=== PATIENT | female | born 1950 | race Caucasian/White ===

== ENCOUNTER 2018-02-27 09:39 | Day surgery (SDC) | payer MEDICARE, MEDICAID ==
[~2018-02-27] VITALS: Ht 165.1 cm; Wt 100.0 kg
[~2018-02-27 09:39] MED LIST: ALBU18HF2 INH; ASPI-611 PO; ATOR20TA PO; CHOL100046 PO; DULO60CA64 PO; FURO-150 PO; GABA-530 PO; IBUP-1984 PO; MORP60CP14 PO; POTA20TA19 PO; TRAZ-146 PO
[2018-02-27] MEDS ORDERED: MIDAZolam 5mg/5ml vial ONE ×2 (09:45→12:57)
[2018-02-27] MEDS ORDERED: LIDOcaine Viscous 15ml cup ONE (09:45)
[2018-02-27] MEDS ORDERED: fentaNYL/PF 50MCG/1 ML 2ML syringe ONE (09:45)
[2018-02-27 09:50] VITALS: BP 196/77
[2018-02-27] MEDS ORDERED: TIOT18CA3 IH (10:04)
[2018-02-27] MEDS ORDERED: HYDR25TA4 PO (10:04)
[2018-02-27] MEDS ORDERED: LORA1TAB PO (10:05)
[2018-02-27] MEDS ORDERED: blood pressure med PO (10:06)
[2018-02-27] MEDS ORDERED: LOSA100T28 PO (10:21)
[2018-02-27] MEDS ORDERED: PROP20TA6 PO (10:24)
[2018-02-27] MEDS ORDERED: CITA20TA11 PO (10:25)
[2018-02-27] MEDS ORDERED: FURO-150 PO (10:25)
[2018-02-27] MEDS ORDERED: SENN-161 PO (10:26)
[2018-02-27] MEDS ORDERED: DOCU100C41 PO (10:26)
[2018-02-27] MEDS ORDERED: METF10002 PO (10:27)
[2018-02-27] MEDS ORDERED: FERR324T PO (10:28)
[2018-02-27] MEDS ORDERED: MORP30CA16 PO (10:28)
[2018-02-27] MEDS ORDERED: HYDR-565 PO (10:29)
[2018-02-27] MEDS ORDERED: ASCO500C15 PO (10:34)
[2018-02-27] MEDS ORDERED: CHOL2000 PO (10:36)
[2018-02-27] MEDS ORDERED: LIDOCAINE PATCH TD (10:38)
[2018-02-27 11:16] VITALS: BP 170/84
[2018-02-27 11:26] VITALS: BP 175/76
[2018-02-27 11:36] VITALS: BP 150/76
[2018-02-27 11:46] VITALS: BP 161/73
== END 2018-02-27 12:10 | disposition home or self-care (01) ==
LOC: GI LAB 09:39
PROVIDERS: ATTEND Internal Medicine Gastroenterology
DX: C20 Malignant neoplasm of rectum (principal); K29.50 Unspecified chronic gastritis without bleeding; K44.9 Diaphragmatic hernia without obstruction or gangrene; I10 Essential (primary) hypertension; J44.9 Chronic obstructive pulmonary disease, unspecified; M17.0 Bilateral primary osteoarthritis of knee; M47.819 Spondylosis without myelopathy or radiculopathy, site unspecified; E11.9 Type 2 diabetes mellitus without complications; F32.9 Major depressive disorder, single episode, unspecified; F41.9 Anxiety disorder, unspecified; Z87.891 Personal history of nicotine dependence; Z85.048 Personal history of other malignant neoplasm of rectum, rectosigmoid junction, and anus; Z79.84 Long term (current) use of oral hypoglycemic drugs; Z79.891 Long term (current) use of opiate analgesic; Z88.6 Allergy status to analgesic agent; Z79.899 Other long term (current) drug therapy; Z98.890 Other specified postprocedural states; Z79.82 Long term (current) use of aspirin
CPT/HCPCS: 43239; 45380; 99153; G0500; J2250; J3010; J7030; A4620

== ENCOUNTER 2018-12-15 10:48 | Emergency (ER) | payer MEDICARE, MEDICAID ==
[~2018-12-15] VITALS: Ht 167.6 cm; Wt 99.1 kg
[~2018-12-15 10:48] MED LIST changes: +ASCO500C15 PO; -ASPI-611 PO; -ATOR20TA PO; +CHOL2000 PO; +CITA-279 PO; +DOCU100C41 PO; +FERR324T PO; -GABA-530 PO; +HYDR-4353 PO; -IBUP-1984 PO; +LIDOCAINE PATCH TD; +LORA1TAB PO; +LOSA100T57 PO; +METF-438 PO; +MORP30CA16 PO; -POTA20TA19 PO; +PROP20TA6 PO; +SENN-162 PO; +TIOT18CA3 IH; -TRAZ-146 PO; +TRAZ-219 PO
[2018-12-15 12:20] LABS: BASOPHILS % (AUTO) 0.4 % (0-1); EOSINOPHILS # (AUTO) 0.1 X10'3 (0-0.9); EOSINOPHILS % (AUTO) 1.2 % (0-6); HEMATOCRIT 40.7 % (35.0-45.0); HEMOGLOBIN 13.8 g/dl (12.0-16.0); LYMPHOCYTES % (AUTO) 18.5 % (21-51); MEAN CORPUSCULAR HEMOGLOBIN 29.7 PG (27.0-31.0); MEAN CORPUSCULAR HGB CONC 33.8 % (33.0-36.5); MEAN PLATELET VOLUME 7.7 FL (7.4-10.4); MONOCYTES # (AUTO) 0.3 X10'3 (0-0.9); MONOCYTES % (AUTO) 5.1 % (2-12); NEUTROPHILS # (AUTO) 4.1 X10'3 (1.8-7.7); NEUTROPHILS % (AUTO) 74.8 % (42-75); PLATELET COUNT 220 X10'3 (140-440); RED BLOOD COUNT 4.63 X10'6 (4.20-5.60); RED CELL DISTRIBUTION WIDTH 13.1 % (11.5-14.5); WHITE BLOOD COUNT 5.4 X10'3 (4.5-11.0)
[2018-12-15 12:34] LABS: ALANINE AMINOTRANSFERASE 31 U/L (12-78); ALBUMIN 3.5 G/DL (3.4-5.0); ALBUMIN/GLOBULIN RATIO 0.9 (1.1-1.5); ALKALINE PHOSPHATASE 91 IU/L (46-116); ANION GAP 11 (8-16); ASPARTATE AMINO TRANSFERASE 20 U/L (10-37); BILIRUBIN,TOTAL 0.4 MG/DL (0.1-1.0); BLOOD UREA NITROGEN 8 MG/DL (7-18); BUN/CREATININE RATIO 11.3 (6.6-38.0); CALCIUM 9.1 MG/DL (8.5-10.1); CHLORIDE 102 MMOL/L (99-107); CREATININE 0.71 MG/DL (0.40-0.90); GLUCOSE 128 MG/DL (70-104); POTASSIUM 3.1 MMOL/L (3.5-5.1); SODIUM 139 MMOL/L (135-145); TOTAL CARBON DIOXIDE 25.6 MMOL/L (24-32); TOTAL PROTEIN 7.3 G/DL (6.4-8.2); eGFR 82 ML/MIN
[2018-12-15] MEDS ORDERED: LORazepam 1 MG tablet PO ONE (12:40)
[2018-12-15] MEDS ORDERED: LORazepam 0.5 MG tablet PO ONE (12:45)
[2018-12-15] MEDS ORDERED: potassium 10mEq/100ml NS w/LIDOcaine (10mg/bag) IV SCH (12:50)
[2018-12-15] MEDS ORDERED: potassium Cl 20 mEq SR tablet PO ONE (12:50)
[2018-12-15] MEDS ORDERED: normal saline 1000ML IV soln IVB ONE (12:55)
[2018-12-15 13:04] LABS: MAGNESIUM 1.6 MG/DL (1.5-2.4)
[2018-12-15 14:17] LABS: CLARITY,URINE CLEAR (Clear); COLOR,URINE YELLOW (Yellow); GLUCOSE, URINE NEGATIVE (Neg); KETONES,URINE NEGATIVE (Neg); LEUKOCYTE ESTERASE ,URINE SMALL (Neg); NITRITES, URINE NEGATIVE (Neg); OCCULT BLOOD,URINE NEGATIVE (Neg); PROTEIN,URINE NEGATIVE (Neg); UROBILINOGEN,URINE 0.2 E.U/dL (0.2-1.0)
[2018-12-15 14:24] LABS: UA COLLECTION TYPE CLN CATCH MIDSTREAM
[2018-12-15 14:26] LABS: BACTERIA,URINE 1+ /HPF (Neg); RBC,URINE NONE SEEN /HPF (0-2); SQUAMOUS EPITHELIAL CELL,UR MODERATE /LPF (FEW)
[2018-12-15] MEDS ORDERED: NITR100C6 PO (14:33)
[2018-12-15 15:01] VITALS: BP 214/74
--- NOTE | 2018-12-15 15:08 | NUR ---
Infromed ER MD that patient recieved 1 of 2 IV 10meq potassium and that patient is has HTN at D/C. No new order and proceed with out 2nd 10meq potassium dose.
== END 2018-12-15 15:09 | disposition home or self-care (01) ==
LOC: ER 10:49
DX: E87.6 Hypokalemia (principal); R53.1 Weakness; N39.0 Urinary tract infection, site not specified; R19.7 Diarrhea, unspecified; R11.2 Nausea with vomiting, unspecified; I10 Essential (primary) hypertension; E11.9 Type 2 diabetes mellitus without complications; M19.90 Unspecified osteoarthritis, unspecified site; G89.29 Other chronic pain; Z90.49 Acquired absence of other specified parts of digestive tract; Z90.89 Acquired absence of other organs; Z98.890 Other specified postprocedural states; Z88.8 Allergy status to other drugs, medicaments and biological substances; Z79.84 Long term (current) use of oral hypoglycemic drugs; Z79.899 Other long term (current) drug therapy
CPT/HCPCS: 36415; 71045; 80053; 81001; 83735; 84443; 85025; 87077; 87088; 87186; 93005; 96365; 99284; J3480; J7030

== ENCOUNTER 2020-04-15 14:20 | Inpatient (IN) | payer MEDICARE, MEDICAID ==
[~2020-04-15] VITALS: Ht 167.6 cm; Wt 95.9 kg
[~2020-04-15 14:20] MED LIST changes: +CITA-157 PO; -CITA-279 PO; -DULO60CA64 PO; +DULO60CA65 PO; +NITR100C6 PO; -SENN-162 PO; +SENN-263 PO; -TRAZ-219 PO; +TRAZ-256 PO
[2020-04-15 15:50] LABS: BASOPHILS % (AUTO) 0.7 % (0-1); EOSINOPHILS # (AUTO) 0.1 X10'3 (0-0.9); EOSINOPHILS % (AUTO) 1.4 % (0-6); HEMATOCRIT 37.8 % (35.0-45.0); HEMOGLOBIN 12.7 g/dl (12.0-16.0); LYMPHOCYTES # (AUTO) 0.8 X10'3 (1.1-4.8); MEAN CORPUSCULAR HGB CONC 33.5 g/dL (33.0-36.5); MEAN CORPUSCULAR VOLUME 83.8 FL (78-98); MEAN PLATELET VOLUME 7.6 FL (7.4-10.4); MONOCYTES # (AUTO) 0.4 X10'3 (0-0.9); NEUTROPHILS # (AUTO) 4.3 X10'3 (1.8-7.7); NEUTROPHILS % (AUTO) 76.9 % (42-75); PLATELET COUNT 237 X10'3 (140-440); RED BLOOD COUNT 4.51 X10'6 (4.20-5.60); RED CELL DISTRIBUTION WIDTH 14.5 % (11.5-14.5); WHITE BLOOD COUNT 5.6 X10'3 (4.5-11.0)
[2020-04-15 16:00] LABS: ALANINE AMINOTRANSFERASE 205 U/L (12-78); ALBUMIN 3.5 G/DL (3.4-5.0); ALBUMIN/GLOBULIN RATIO 0.7 (1.1-1.5); ALKALINE PHOSPHATASE 203 IU/L (46-116); ANION GAP 9 (8-16); ASPARTATE AMINO TRANSFERASE 120 U/L (10-37); BILIRUBIN,TOTAL 0.3 MG/DL (0.1-1.0); BLOOD UREA NITROGEN 9 MG/DL (7-18); CALCIUM 9.6 MG/DL (8.5-10.1); CHLORIDE 98 MMOL/L (99-107); CREATININE 0.69 MG/DL (0.40-0.90); GLUCOSE 161 MG/DL (70-104); LIPASE 82 U/L (73-393); POTASSIUM 3.7 MMOL/L (3.5-5.1); SODIUM 135 MMOL/L (135-145); TOTAL CARBON DIOXIDE 27.7 MMOL/L (24-32); TOTAL PROTEIN 8.2 G/DL (6.4-8.2); eGFR 85 ML/MIN
[2020-04-15] MEDS ORDERED: morphine 4 MG/ML inj SYRINge IM ONE (16:35)
[2020-04-15] MEDS ORDERED: ondansetron/PF 4mg/2ml inj IM ONE (16:35)
[2020-04-15 17:42] LABS: CLARITY,URINE CLEAR (Clear); COLOR,URINE YELLOW (Yellow); GLUCOSE, URINE NEGATIVE (Neg); KETONES,URINE TRACE mg/dl (Neg); LEUKOCYTE ESTERASE ,URINE NEGATIVE (Neg); NITRITES, URINE NEGATIVE (Neg); OCCULT BLOOD,URINE NEGATIVE (Neg); PH,URINE 7.5 (4.8-8.0); PROTEIN,URINE NEGATIVE (Neg); UROBILINOGEN,URINE 0.2 E.U/dL (0.2-1.0)
[2020-04-15 17:45] LABS: UA COLLECTION TYPE CLN CATCH MIDSTREAM
[2020-04-15 18:46] LABS: PARTIAL THROMBOPLASTIN TIME 28 SECONDS (22-32)
--- NOTE | 2020-04-15 20:39 | NUR ---
pt resting comfortably, just asking when she will be admitted, and wants ativan
[2020-04-15] MEDS ORDERED: LORazepam 1 MG tablet PO ONE (20:45)
--- NOTE | 2020-04-15 20:48 | NUR ---
gave pt ativan and assisted to bsc
--- NOTE | 2020-04-15 21:39 | NUR ---
CRYSTAL DAUGHTER CAN CALL [phone]
[2020-04-15] MEDS ORDERED: morphine 2 MG/ML inj. syringe IV PRN ×2 (22:40)
[2020-04-15] MEDS ORDERED: ondansetron/PF 4mg/2ml inj IV PRN (22:40)
[2020-04-15] MEDS ORDERED: potassium CL 10mEq/100ml bag 100 ML IV PRN ×2 (22:40)
[2020-04-15] MEDS ORDERED: glucagon, human recombinant 1mg kit SUBCUT PRN (22:45)
[2020-04-15] MEDS ORDERED: MESSAGE TO PHARMACY PO ONE (22:45)
[2020-04-15] MEDS ORDERED: dextrose 50%-water 50ml dispensing syringe IV PRN ×2 (22:45)
[2020-04-15] MEDS ORDERED: dextrose ORAL solution 15 GM/59 ML bottle PO PRN ×2 (22:45)
--- NOTE | 2020-04-15 23:30 | NUR ---
Received report from Rubén CHAUDHRY. Will assume patient care.
[2020-04-15] MEDS: normal saline 1000ml 1,000 ML IV SCH (23:40)
[2020-04-16] VITALS (23 sets, daily range): BP systolic 119–201; BP diastolic 61–120
[2020-04-16] MEDS ORDERED: traZODone 50mg tablet PO ONE (00:45)
[2020-04-16] MEDS ORDERED: MORP15TA PO (01:10)
[2020-04-16 05:29] LABS: BASOPHILS % (AUTO) 0.5 % (0-1); EOSINOPHILS # (AUTO) 0.1 X10'3 (0-0.9); EOSINOPHILS % (AUTO) 2.2 % (0-6); HEMOGLOBIN 12.4 g/dl (12.0-16.0); LYMPHOCYTES # (AUTO) 0.9 X10'3 (1.1-4.8); LYMPHOCYTES % (AUTO) 18.4 % (21-51); MEAN CORPUSCULAR HEMOGLOBIN 27.8 PG (27.0-31.0); MEAN CORPUSCULAR HGB CONC 33.5 g/dL (33.0-36.5); MEAN CORPUSCULAR VOLUME 82.9 FL (78-98); MEAN PLATELET VOLUME 7.1 FL (7.4-10.4); MONOCYTES # (AUTO) 0.5 X10'3 (0-0.9); MONOCYTES % (AUTO) 10.1 % (2-12); NEUTROPHILS # (AUTO) 3.4 X10'3 (1.8-7.7); NEUTROPHILS % (AUTO) 68.8 % (42-75); PLATELET COUNT 220 X10'3 (140-440); RED BLOOD COUNT 4.47 X10'6 (4.20-5.60); RED CELL DISTRIBUTION WIDTH 14.2 % (11.5-14.5); WHITE BLOOD COUNT 4.9 X10'3 (4.5-11.0)
--- NOTE | 2020-04-16 06:00 | NUR ---
Patient in room [facility]. I have received report from RICHA Beckett and had the opportunity to ask questions and assume patient care.
[2020-04-16 06:06] LABS: ALANINE AMINOTRANSFERASE 141 U/L (12-78); ALBUMIN 3.2 G/DL (3.4-5.0); ALBUMIN/GLOBULIN RATIO 0.8 (1.1-1.5); ALKALINE PHOSPHATASE 172 IU/L (46-116); ANION GAP 9 (8-16); ASPARTATE AMINO TRANSFERASE 62 U/L (10-37); BILIRUBIN,TOTAL 0.4 MG/DL (0.1-1.0); BLOOD UREA NITROGEN 8 MG/DL (7-18); BUN/CREATININE RATIO 13.8 (6.6-38.0); CHLORIDE 102 MMOL/L (99-107); CREATININE 0.58 MG/DL (0.40-0.90); GLUCOSE 151 MG/DL (70-104); POTASSIUM 3.4 MMOL/L (3.5-5.1); SODIUM 138 MMOL/L (135-145); TOTAL CARBON DIOXIDE 26.9 MMOL/L (24-32); TOTAL PROTEIN 7.4 G/DL (6.4-8.2); eGFR > 90 ML/MIN
[2020-04-16] MEDS ORDERED: BUPIVAcaine/PF 2.5 mg/ml (0.25%) 30ml vial ONE (06:37)
[2020-04-16] MEDS ORDERED: LIDOcaine 1% 30ml preserv. free vial ONE (06:37)
[2020-04-16 07:25] LABS: PRE OP PARTIAL THROMB. TIME 27 SECONDS (22-32)
[2020-04-16] MEDS: propranolol 10mg tablet PO SCH ×2 (07:47→20:18)
[2020-04-16] MEDS ORDERED: MORPHINE SULFATE PO SCH ×2 (08:00)
[2020-04-16] MEDS: K and/or MAG REPLACEMENT MC SCH ×2 (08:00→20:00)
[2020-04-16] MEDS: morphine ER 15mg tablet PO SCH ×4 (08:00→21:22)
[2020-04-16] MEDS ORDERED: [UNRECOGNIZED DRUG - OTHER] IV ONE (08:10)
[2020-04-16] MEDS ORDERED: CEFOXITIN 2 GM IV ONE (08:10)
[2020-04-16] MEDS ORDERED: sevoflurane 250ml liquid IH ONE (08:11)
[2020-04-16] MEDS ORDERED: midazolam 2 mg/2 ml injection ONE (08:11)
[2020-04-16] MEDS ORDERED: ondansetron/PF 4mg/2ml inj ONE (08:11)
[2020-04-16] MEDS ORDERED: fentaNYL /PF 50mcg/ml 5ml ampule ONE (08:12)
[2020-04-16] MEDS ORDERED: propofol inj 20 ML IV ONE (08:16)
[2020-04-16] MEDS ORDERED: rocuronium 10mg/ml inj IV ONE (08:17)
[2020-04-16] MEDS ORDERED: dexamethasone sod phosphate 4mg/ml inj. ONE (08:27)
[2020-04-16] MEDS ORDERED: ringers solution, lacted 1,000 ML IV SCH (09:04)
[2020-04-16] MEDS ORDERED: ondansetron/PF 4mg/2ml inj IV PRN (09:05)
[2020-04-16] MEDS ORDERED: morphine 2 MG/ML inj. syringe IV PRN (09:05)
[2020-04-16] MEDS ORDERED: proCHLORperazine 10 MG/2 ml inj IV PRN (09:05)
[2020-04-16] MEDS ORDERED: meperidine/PF 25mg/ml syringe IV PRN ×2 (09:05)
[2020-04-16] MEDS ORDERED: INDOCYANINE GREEN 25 MG/10 ML VIAL IV ONE (09:35)
[2020-04-16] MEDS ORDERED: fentaNYL/PF 50MCG/1 ML 2ML syringe ONE (09:51)
[2020-04-16] MEDS ORDERED: labetalol 20mg/4ml (5mg/ml) syringe IV ONE (09:55)
[2020-04-16] MEDS ORDERED: neostigmine methylsulfate 1 MG/ML 10ml vial ONE (10:36)
[2020-04-16] MEDS ORDERED: glycopyrrolate 0.2mg/ml inj ONE (10:36)
--- NOTE | 2020-04-16 10:46 | NUR ---
Received from OR via BED, accompanied by Anesthesiologist DR ELY and report given by Anesthesiologist. PT DROWSY,PAINFUL,BP ELEVATED, ABDOMEN W/4 LAP SITES W/BANDAIDS CDI, COLOLSTOMY BAG INTACT, NOTHING IN BAG, STOMA PINK/RED, VIVEROS CATHETER TO GRAVITY DRAINAGE W/YELLOW URINE. DR ELY GAVE PT PAIN MEDICATION AND LABETALOL FOR BP, BP 180-S IS OKAY FOR PT. Addendum: 04/16/20 at 1113 by Rizwana Parmar RN Amended: Links added.
--- NOTE | 2020-04-16 11:03 | NUR ---
Nutrition consult re: "Poor intake". Pt currently NPO and has been since admit. Pt denies decreased appetite per malnutrition risk screen with RN. No nutrition intervention implemented at this time. Pt with hx rectal cancer, pending colostomy placement today. Pt would benefit from colostomy nutrition therapy education once stable. Recommend advancing diet to low fiber as medically indicated post-op. Will continue to follow. Addendum: 04/16/20 at [address] Amended: Links added.
[2020-04-16] MEDS: morphine 4 MG/ML inj SYRINge IV PRN ×6 (11:07→12:19)
[2020-04-16] MEDS: meperidine/PF 25mg/ml syringe IV PRN ×4 (11:24→12:25)
[2020-04-16] MEDS ORDERED: naloxone 0.4 mg/ml inj IV PRN (12:00)
[2020-04-16] MEDS ORDERED: HYDROmorphone/NS 1 mg/ml CADD 50 ML IV SCH (12:00)
--- NOTE | 2020-04-16 12:36 | NUR ---
Report called to receiving nurse. Transferred via BED, PAIN GREATLY IMPROVED FROM ARRIVAL TO PACU, NO Belongings, ONLY GLASSES THAT PT WAS WEARING, RECEIVING RN AT BEDSIDE TO RECEIVE PT, BLL, CALL LIGHT GIVEN, SIDE RAILS UP X 2. Special Issues communicated to receiving nurse. YES. Addendum: 04/16/20 at 1244 by Rizwana Parmar RN Amended: Links added.
[2020-04-16] MEDS: HYDROmorphone/NS 1 mg/ml CADD 50 ML IV SCH ×6 (13:07→23:00)
[2020-04-16] MEDS: normal saline 1000ml 1,000 ML IV SCH ×2 (13:14→18:37)
--- NOTE | 2020-04-16 18:00 | NUR ---
Patient was rounded on hourly and frequently assessed for needs, unable to chart individually due to time constraints.
--- NOTE | 2020-04-16 18:00 | NUR ---
Problems reprioritized. Patient report given, questions answered & plan of care reviewed with RICHA Broussard.
--- NOTE | 2020-04-16 18:59 | NUR ---
Patient in room [facility]. I have received report from JASON CHAUDHRY and had the opportunity to ask questions and assume patient care. PATIENT RESTING IN BED AND WAS EDUCATED ON HOW TO USE THE PIERCER OPERATOR PUMP.
[2020-04-16] MEDS: insulin Lispro (HumaLOG) vial - multi-dose SQ SCH (19:21)
[2020-04-16] MEDS: LORazepam 2 mg/ml vial IV PRN (21:11)
[2020-04-16] MEDS: traZODone 50mg tablet PO SCH (21:22)
[2020-04-17] VITALS (7 sets, daily range): BP systolic 142–205; BP diastolic 56–92
[2020-04-17] MEDS: HYDROmorphone/NS 1 mg/ml CADD 50 ML IV SCH ×12 (01:00→23:00)
[2020-04-17] MEDS: LORazepam 2 mg/ml vial IV PRN ×3 (01:39→19:19)
--- NOTE | 2020-04-17 03:47 | NUR ---
PATIENT HAD A ROUGH NIGHT. SHE COMPLAINED OF PAIN AND IS RECEIVING COMMUNITY HEALTH CONSULTANT DILAUDID. CALLED MD TO SEE IF PATIENT CAN GET ANY OTHER PRN PAIN MEDS FOR BREAK THROUGH PAIN. DUE TO HIGH DOSE OF PAIN MEDS CURRENTLY RECEIVING, MD ORDERED TO INCREASE THE DEMAND DOSE FROM 0.30MG TO 0.40MG. PATIENT RECEIVED ATIVAN FOR ANXIETY AND SHE IS NOW RESTING. WILL CONTINUE TO MONITOR PATIENT.
[2020-04-17] MEDS: normal saline 1000ml 1,000 ML IV SCH ×3 (04:37→17:02)
[2020-04-17 05:35] LABS: BASOPHILS % (AUTO) 0.2 % (0-1); EOSINOPHILS % (AUTO) 0.6 % (0-6); HEMOGLOBIN 11.8 g/dl (12.0-16.0); LYMPHOCYTES % (AUTO) 12.3 % (21-51); MEAN CORPUSCULAR HEMOGLOBIN 27.6 PG (27.0-31.0); MEAN CORPUSCULAR HGB CONC 32.7 g/dL (33.0-36.5); MEAN CORPUSCULAR VOLUME 84.4 FL (78-98); MEAN PLATELET VOLUME 7.3 FL (7.4-10.4); MONOCYTES # (AUTO) 0.7 X10'3 (0-0.9); MONOCYTES % (AUTO) 9.3 % (2-12); NEUTROPHILS # (AUTO) 6.2 X10'3 (1.8-7.7); NEUTROPHILS % (AUTO) 77.6 % (42-75); PLATELET COUNT 201 X10'3 (140-440); RED BLOOD COUNT 4.27 X10'6 (4.20-5.60); RED CELL DISTRIBUTION WIDTH 14.3 % (11.5-14.5); WHITE BLOOD COUNT 7.9 X10'3 (4.5-11.0)
[2020-04-17 05:56] LABS: ALANINE AMINOTRANSFERASE 86 U/L (12-78); ALBUMIN 2.8 G/DL (3.4-5.0); ALBUMIN/GLOBULIN RATIO 0.8 (1.1-1.5); ALKALINE PHOSPHATASE 133 IU/L (46-116); ANION GAP 6 (8-16); ASPARTATE AMINO TRANSFERASE 33 U/L (10-37); BILIRUBIN,TOTAL 0.3 MG/DL (0.1-1.0); BLOOD UREA NITROGEN 7 MG/DL (7-18); BUN/CREATININE RATIO 12.7 (6.6-38.0); CALCIUM 8.4 MG/DL (8.5-10.1); CHLORIDE 104 MMOL/L (99-107); CREATININE 0.55 MG/DL (0.40-0.90); GLUCOSE 139 MG/DL (70-104); POTASSIUM 3.4 MMOL/L (3.5-5.1); SODIUM 138 MMOL/L (135-145); TOTAL CARBON DIOXIDE 28.4 MMOL/L (24-32); TOTAL PROTEIN 6.5 G/DL (6.4-8.2); eGFR > 90 ML/MIN
--- NOTE | 2020-04-17 06:00 | NUR ---
Patient in room [facility]. I have received report from RICHA Broussard and had the opportunity to ask questions and assume patient care.
--- NOTE | 2020-04-17 06:27 | NUR ---
Problems reprioritized. Patient report given, questions answered & plan of care reviewed with FIFI RN.Patient is resting. She had a rough night. Complained of pain and the demand dose for the RETIREMENT PLAN SPECIALIST was increased per MD order.
[2020-04-17] MEDS: morphine ER 15mg tablet PO SCH ×3 (07:14→20:28)
[2020-04-17] MEDS: enoxaparin 40mg/0.4ml syringe SQ SCH (07:14)
[2020-04-17] MEDS: propranolol 10mg tablet PO SCH ×2 (07:14→19:19)
[2020-04-17] MEDS: K and/or MAG REPLACEMENT MC SCH ×2 (08:00→20:00)
[2020-04-17] MEDS: insulin Lispro (HumaLOG) vial - multi-dose SQ SCH ×2 (09:45→18:45)
[2020-04-17] MEDS ORDERED: methylnaltrexone br 12mg/0.6ml inj***SubQ only SQ ONE (10:30)
[2020-04-17] MEDS ORDERED: magnesium hydroxide 30ml (MOM) UD suspension PO ONE (10:30)
--- NOTE | 2020-04-17 10:55 | NUR ---
Spoke with daughter Flaquita. Daughter state that mother's friend stated that she had heard that cancer had been removed and she only has x amount of months left to live from an unknown source. The surgeon did not give the patient a timeline nor did he state that he removed any cancer so it's unclear where she received this information from. Daughter Flaquita also states that mother's friend "isn't all there, " as in she may not be entirely alert and oriented. Patient's daughter was only informed that mother is awake and eating and has a colostomy with patient's consent.
[2020-04-17] MEDS ORDERED: magnesium 4gm in 100ml NS 100 ML IV PRN (12:40)
[2020-04-17] MEDS ORDERED: magnesium Cl slow-release 64mg tablet PO PRN (12:40)
[2020-04-17] MEDS ORDERED: potassium CL 10mEq/100ml bag 100 ML IV PRN (12:40)
[2020-04-17] MEDS ORDERED: potassium Cl 20 mEq SR tablet PO PRN (12:40)
[2020-04-17] MEDS: potassium Cl 20 mEq SR tablet PO PRN ×3 (12:46→22:58)
[2020-04-17] MEDS ORDERED: HYDROcodone/acetaminophen 10/325mg tab PO SCH (14:00)
[2020-04-17] MEDS ORDERED: metFORMIN 500mg tablet PO SCH (17:30)
--- NOTE | 2020-04-17 18:00 | NUR ---
Problems reprioritized. Patient report given, questions answered & plan of care reviewed with RICHA Owusu.
--- NOTE | 2020-04-17 18:31 | NUR ---
Patient in room [facility]. I have received report from RICHA Bautista and had the opportunity to ask questions and assume patient care.
[2020-04-17] MEDS: docusate sod 100mg capsule PO SCH (19:18)
[2020-04-17] MEDS: vitamin D (cholecalciferol) 1,000 unit tablet PO SCH (19:19)
[2020-04-17] MEDS: nitrofuran/nitrofuran macrocrysal 100 MG capsule PO SCH (19:19)
[2020-04-17] MEDS: traZODone 50mg tablet PO SCH (20:28)
[2020-04-17] MEDS: hydrALAZINE 20mg/ml inj. IV PRN (22:57)
[2020-04-18] MEDS: HYDROmorphone/NS 1 mg/ml CADD 50 ML IV SCH ×12 (01:00→23:00)
[2020-04-18] MEDS: LORazepam 2 mg/ml vial IV PRN ×3 (01:13→07:45)
--- NOTE | 2020-04-18 03:30 | NUR ---
Per Dr. Alcantara, increase CADD dose to Dilaudid 0.4
[2020-04-18] MEDS: normal saline 1000ml 1,000 ML IV SCH (03:42)
[2020-04-18 06:02] LABS: BASOPHILS % (AUTO) 0.4 % (0-1); EOSINOPHILS # (AUTO) 0.1 X10'3 (0-0.9); EOSINOPHILS % (AUTO) 0.6 % (0-6); HEMATOCRIT 36.6 % (35.0-45.0); HEMOGLOBIN 12.3 g/dl (12.0-16.0); LYMPHOCYTES # (AUTO) 1.1 X10'3 (1.1-4.8); LYMPHOCYTES % (AUTO) 12.1 % (21-51); MEAN CORPUSCULAR HEMOGLOBIN 27.8 PG (27.0-31.0); MEAN CORPUSCULAR HGB CONC 33.8 g/dL (33.0-36.5); MEAN CORPUSCULAR VOLUME 82.4 FL (78-98); MEAN PLATELET VOLUME 7.9 FL (7.4-10.4); MONOCYTES # (AUTO) 0.7 X10'3 (0-0.9); MONOCYTES % (AUTO) 8.1 % (2-12); NEUTROPHILS % (AUTO) 78.8 % (42-75); PLATELET COUNT 236 X10'3 (140-440); RED BLOOD COUNT 4.43 X10'6 (4.20-5.60); RED CELL DISTRIBUTION WIDTH 14.3 % (11.5-14.5); WHITE BLOOD COUNT 8.9 X10'3 (4.5-11.0)
[2020-04-18 06:10] LABS: ALANINE AMINOTRANSFERASE 67 U/L (12-78); ALBUMIN 3.1 G/DL (3.4-5.0); ALBUMIN/GLOBULIN RATIO 0.7 (1.1-1.5); ALKALINE PHOSPHATASE 142 IU/L (46-116); ANION GAP 5 (8-16); ASPARTATE AMINO TRANSFERASE 25 U/L (10-37); BILIRUBIN,TOTAL 0.5 MG/DL (0.1-1.0); BLOOD UREA NITROGEN 4 MG/DL (7-18); BUN/CREATININE RATIO 6.5 (6.6-38.0); CALCIUM 8.7 MG/DL (8.5-10.1); CHLORIDE 98 MMOL/L (99-107); CREATININE 0.62 MG/DL (0.40-0.90); GLUCOSE 181 MG/DL (70-104); POTASSIUM 3.7 MMOL/L (3.5-5.1); SODIUM 132 MMOL/L (135-145); TOTAL CARBON DIOXIDE 28.9 MMOL/L (24-32); TOTAL PROTEIN 7.3 G/DL (6.4-8.2); eGFR > 90 ML/MIN
--- NOTE | 2020-04-18 06:39 | NUR ---
Problems reprioritized. Patient report given, questions answered & plan of care reviewed with RICHA Bojorquez.
--- NOTE | 2020-04-18 07:03 | NUR ---
Patient in room [facility]. I have received report from Francoise CHAUDHRY and had the opportunity to ask questions and assume patient care.
[2020-04-18] MEDS: docusate sod 100mg capsule PO SCH ×2 (07:44→20:31)
[2020-04-18] MEDS: ascorbic acid 500mg tablet PO SCH (07:45)
[2020-04-18] MEDS: propranolol 10mg tablet PO SCH ×2 (07:46→20:31)
[2020-04-18] MEDS: duloxetine 30mg CAPSULE.DR PO SCH (07:46)
[2020-04-18] MEDS: losartan 50mg tablet PO SCH (07:46)
[2020-04-18] MEDS: vitamin D (cholecalciferol) 1,000 unit tablet PO SCH ×2 (07:47→20:30)
[2020-04-18] MEDS: enoxaparin 40mg/0.4ml syringe SQ SCH (07:49)
[2020-04-18 08:00] VITALS: BP 164/79
[2020-04-18] MEDS ORDERED: vitamin D (cholecalciferol) 1,000 unit tablet PO SCH (08:00)
[2020-04-18] MEDS: K and/or MAG REPLACEMENT MC SCH ×2 (08:00→20:00)
[2020-04-18] MEDS: nitrofuran/nitrofuran macrocrysal 100 MG capsule PO SCH ×2 (08:05→20:30)
[2020-04-18] MEDS ORDERED: magnesium hydroxide 30ml (MOM) UD suspension PO ONE (09:05)
[2020-04-18] MEDS: insulin Lispro (HumaLOG) vial - multi-dose SQ SCH ×3 (10:39→19:14)
[2020-04-18 11:00] VITALS: BP 149/65
--- NOTE | 2020-04-18 13:00 | NUR ---
OSTOMY FACTS: Almost everyone has know of, or met, businessmen, entertainers, athletes, and people from all walks of life who have an ostomy. Ostomates (a person that has an ostomy) can ski, ride horses, bowl, and get healthy exercise in countless ways. Your usual activities of daily living can be resumed as soon as you are able. Gradually you will be able to wear the clothes worn before surgery. With modern pouches, nothing is noticeable under your clothing. It may be difficult at first to believe that an intimate relationship can be possible when one's body has been disfigured by surgery. This is not true. Love, fortunately, is not easily destroyed when it is based on genuine appreciation of a person as a thinking, feeling, reacting human being. AN OSTOMY IS NOT AN IMPAIRMENT!! DEFINITIONS: 1.OSTOMY: An opening that is created by a surgical procedure. The opening is called a "stoma". 2.STOMA: A surgical opening in the abdomen (belly) where intestine is brought through the abdominal wall and connected at the skin level. A stoma is shiny, wet and at first is dark purple but eventually turns pink, similar to the inside lining of your mouth. 3.COLON: A portion of the large bowel. 4.COLOSTOMY: A fecal diversion with an opening, (stoma) created anywhere along the colon. Making a connection between the colon and the abdominal wall. 5.ILLEOSTOMY: A fecal diversion with an opening, (stoma) created in the small intestine. Making a connection between the small intestine and the abdominal wall. 6.UROSTOMY: A urinary diversion with the ureters connected to a segment of the small bowel and one end is brought out and connected to the abdominal wall, creating a stoma. SHAPES and SIZES: "The stoma is usually round or oval. "It is anywhere from a dime to half dollar in size. "A stoma reaches its permanent size 6-8 weeks after surgery. PRODUCTS: 1.POUCH or APPLIANCE: An external device to contain stool or urine output and protect the skin around the stoma. It can be a one piece pouch or two pieces (a pouch and a wafer). 2.BARRIER: Substance that is used to protect the skin around the stoma from drainage and adhesive. 3.SKIN PREP or SEALANT: Product applied to the skin to reduce injury from moisture, drainage, or repeated pouch removal. Available in spray or wipes. 4.CLOSURE or CLAMP: A device used to close the bottom of a drainable pouch. 5.BRIDGE or WHITNEY: A piece of plastic placed under a loop of bowel on the skins surface, to secure the bowel in place while the skin heals. POUCH CHANGE PROCEEDURE: 1.Assemble all the supplies "1 or 2 piece appliance "Ostomy paste (if needed) "Ostomy powder (if needed) "Skin prep wipes ( not recommended with coloplast products) "Moist wash cloth or cotton balls 2.Remove plastic center and paper backing from pouch. If pouch or wafer is not precut, use the sizing guide, or plastic backing from pouch to make a pattern. Do this by placing the paper over the stoma and trace it, or draw a pattern. Cut the wafer to fit and set it aside. 3.Remove old pouch by lifting up on tape while pressing skin down away from the tape. If there is a clip on your pouch, remove it and save it. 4.Clean skin or stoma with moistened wash cloth or cotton balls. Place a clean cotton ball over stoma hole to catch any drainage. Let skin dry. 5.For grooves or uneven areas in the skin- apply ostomy paste and sprinkle with ostomy powder, then gently shape the past so the area around the stoma is smooth and as flat as possible. Wipe off or blow away excess. Blot powder with skin prep wipe (DO NOT wipe powder). Let dry until no longer sticky. 6.For irritated or reddened skin- sprinkle ostomy powder on red or irritated area. Wipe off or blow away excess. Blot powder with skin prep wipe (DO NOT wipe powder). Let dry until no longer sticky. 7.Apply skin prep wipe to skin to which the pouch and tape will adhere. Let dry until no longer sticky. 8.If you have a one piece appliance- apply pouch so it is centered around the stoma. No skin should be exposed to stool. All skin should be covered by paste or pouch. 9.If you have a two piece appliance- Apply the wafer as described above, then snap or stick pouch onto wafer. Check to make sure wafer and pouch are securely connected. 10.Place clip on bottom of pouch. 11.Empty pouch when 1/3 full. OSTOMY SKIN CARE: "Good health care and nutrition are essential for healthy skin. "Usually a correct pouch size will prevent skin breakdown. "Use warm water and soap for skin cleansing. "Do not use creams or oil based products on skin around the stoma. This will prevent the appliance from sticking. "Use skin prep around the stoma. IT CAN TAKE 24 HOURS TO SEVERAL DAYS FOR SKIN TO HEAL. IF IT IS NOT RESOLVING, OR GETTING WORSE, CALL YOUR PRIMARY CARE DOCTOR. Addendum: 04/18/20 at 1300 by Yeimi Ontiveros RN Amended: Links added.
[2020-04-18] MEDS: CADD PCA waste documentation MC PRN (13:10)
--- NOTE | 2020-04-18 18:20 | NUR ---
Patient in room [facility]. I have received report from Maryellen CHAUDHRY and had the opportunity to ask questions and assume patient care.
--- NOTE | 2020-04-18 18:23 | NUR ---
Problems reprioritized. Patient report given, questions answered & plan of care reviewed with Neelima CHAUDHRY.
[2020-04-18] MEDS: traZODone 50mg tablet PO SCH (20:31)
[2020-04-18 20:35] VITALS: BP 158/77
[2020-04-19] VITALS: BP 110/62
[2020-04-19] MEDS: HYDROmorphone/NS 1 mg/ml CADD 50 ML IV SCH ×3 (01:00→05:00)
[2020-04-19] MEDS ORDERED: normal saline 1000ml 1,000 ML IV SCH (02:40)
--- NOTE | 2020-04-19 06:29 | NUR ---
Problems reprioritized. Patient report given, questions answered & plan of care reviewed with Maryellen CHAUDHRY.
--- NOTE | 2020-04-19 06:31 | NUR ---
Patient in room [facility]. I have received report from Neelima CHAUDHRY and had the opportunity to ask questions and assume patient care.
[2020-04-19] MEDS ORDERED: methylnaltrexone br 12mg/0.6ml inj***SubQ only SQ ONE (07:05)
[2020-04-19 07:26] LABS: BASOPHILS % (AUTO) 0.3 % (0-1); EOSINOPHILS # (AUTO) 0.1 X10'3 (0-0.9); EOSINOPHILS % (AUTO) 1.9 % (0-6); HEMATOCRIT 33.2 % (35.0-45.0); LYMPHOCYTES # (AUTO) 0.7 X10'3 (1.1-4.8); LYMPHOCYTES % (AUTO) 11.6 % (21-51); MEAN CORPUSCULAR HEMOGLOBIN 27.6 PG (27.0-31.0); MEAN CORPUSCULAR HGB CONC 33.2 g/dL (33.0-36.5); MEAN PLATELET VOLUME 7.6 FL (7.4-10.4); MONOCYTES # (AUTO) 0.5 X10'3 (0-0.9); MONOCYTES % (AUTO) 7.4 % (2-12); NEUTROPHILS % (AUTO) 78.8 % (42-75); PLATELET COUNT 206 X10'3 (140-440); RED CELL DISTRIBUTION WIDTH 14.3 % (11.5-14.5); WHITE BLOOD COUNT 6.4 X10'3 (4.5-11.0)
[2020-04-19 07:49] LABS: ALANINE AMINOTRANSFERASE 44 U/L (12-78); ALBUMIN 2.6 G/DL (3.4-5.0); ALBUMIN/GLOBULIN RATIO 0.7 (1.1-1.5); ALKALINE PHOSPHATASE 114 IU/L (46-116); ANION GAP 6 (8-16); ASPARTATE AMINO TRANSFERASE 21 U/L (10-37); BILIRUBIN,TOTAL 0.4 MG/DL (0.1-1.0); BLOOD UREA NITROGEN 4 MG/DL (7-18); BUN/CREATININE RATIO 6.6 (6.6-38.0); CALCIUM 8.7 MG/DL (8.5-10.1); CHLORIDE 104 MMOL/L (99-107); CREATININE 0.61 MG/DL (0.40-0.90); GLUCOSE 134 MG/DL (70-104); MAGNESIUM 2.1 MG/DL (1.5-2.4); POTASSIUM 3.7 MMOL/L (3.5-5.1); SODIUM 139 MMOL/L (135-145); TOTAL CARBON DIOXIDE 29.1 MMOL/L (24-32); TOTAL PROTEIN 6.4 G/DL (6.4-8.2); eGFR > 90 ML/MIN
[2020-04-19 08:00] VITALS: BP 155/59
[2020-04-19] MEDS: losartan 50mg tablet PO SCH (08:00)
[2020-04-19] MEDS: nitrofuran/nitrofuran macrocrysal 100 MG capsule PO SCH ×2 (08:00→20:18)
[2020-04-19] MEDS: vitamin D (cholecalciferol) 1,000 unit tablet PO SCH ×2 (08:00→20:19)
[2020-04-19] MEDS: ascorbic acid 500mg tablet PO SCH (08:00)
[2020-04-19] MEDS: docusate sod 100mg capsule PO SCH ×2 (08:00→20:19)
[2020-04-19] MEDS: duloxetine 30mg CAPSULE.DR PO SCH (08:00)
[2020-04-19] MEDS: K and/or MAG REPLACEMENT MC SCH ×2 (08:00→20:00)
[2020-04-19] MEDS: propranolol 10mg tablet PO SCH ×2 (08:00→20:19)
[2020-04-19] MEDS: enoxaparin 40mg/0.4ml syringe SQ SCH (09:06)
[2020-04-19] MEDS: insulin Lispro (HumaLOG) vial - multi-dose SQ SCH (09:15)
[2020-04-19 11:00] VITALS: BP 160/63
[2020-04-19] MEDS ORDERED: magnesium hydroxide 30ml (MOM) UD suspension PO ONE (14:05)
--- NOTE | 2020-04-19 14:10 | NUR ---
Initial: Pt with rectal carcinoma admit for diverting colostomy, now POD #3. Pt seen at bedside provided with written and verbal colostomy nutrition therapy education with RD contact information. Pt requests RD f/u for education at another time as she is with severe pain, has CADD pump for Dilaudid. Still no stool output per MD notes. Pt receiving routine bowel care and received one time dose of Relistor today. Pt previously on clear liquid diet advanced to full liquid diet documented with 25-50% PO intake. Diet just advanced to regular today, pending documentation of PO intake. Pt may benefit from diet change to low fiber given recent GI surgery. Pt agrees to chop all food d/t missing teeth, d/w dietary. Will continue to follow closely and provide f/u education once pt stable. Recommendations: 1) Consider diet change to low fiber given recent GI surgery 2) Monitor need for ONS 3) Routine bowel care 4) Scaled weights per rx 5) F/u verbal colostomy nutrition therapy education once stable Addendum: 04/19/20 at [address] Amended: Links added.
[2020-04-19] MEDS ORDERED: oxyCODONE/APAP 10/325mg tablet PO PRN (14:20)
[2020-04-19] MEDS: CADD PCA waste documentation MC PRN (17:14)
[2020-04-19] MEDS: morphine ER 30mg tablet PO SCH ×2 (17:18→23:24)
[2020-04-19] MEDS: morphine 2 MG/ML inj. syringe IV PRN (18:35)
--- NOTE | 2020-04-19 18:42 | NUR ---
Problems reprioritized. Patient report given, questions answered & plan of care reviewed with Sandy CHAUDHRY.
[2020-04-19 20:00] VITALS: BP 192/75
[2020-04-19] MEDS: traZODone 50mg tablet PO SCH (20:19)
[2020-04-19] MEDS: oxyCODONE/APAP 10/325mg tablet PO PRN (20:20)
[2020-04-20] VITALS: BP 151/53
--- NOTE | 2020-04-20 00:48 | NUR ---
Patient in room [facility]. I have received report from RICHA Bojorquez and had the opportunity to ask questions and assume patient care. Addendum: 04/20/20 at 0051 by Sandy Todd RN Amended: Links added.
[2020-04-20] MEDS: HYDROcodone/acetaminophen 10/325mg tab PO PRN ×2 (01:18→14:43)
[2020-04-20] MEDS: oxyCODONE/APAP 10/325mg tablet PO PRN ×2 (02:27→10:09)
[2020-04-20] MEDS: morphine 2 MG/ML inj. syringe IV PRN ×3 (04:30→19:50)
--- NOTE | 2020-04-20 06:15 | NUR ---
Problems reprioritized. Patient report given, questions answered & plan of care reviewed with RICHA Belle. Addendum: 04/20/20 at 0616 by Sandy Todd RN Amended: Links added.
[2020-04-20 06:31] LABS: ALANINE AMINOTRANSFERASE 39 U/L (12-78); ALBUMIN 2.4 G/DL (3.4-5.0); ALBUMIN/GLOBULIN RATIO 0.6 (1.1-1.5); ALKALINE PHOSPHATASE 108 IU/L (46-116); ANION GAP 5 (8-16); ASPARTATE AMINO TRANSFERASE 26 U/L (10-37); BILIRUBIN,TOTAL 0.3 MG/DL (0.1-1.0); BLOOD UREA NITROGEN 6 MG/DL (7-18); BUN/CREATININE RATIO 10.3 (6.6-38.0); CALCIUM 8.6 MG/DL (8.5-10.1); CHLORIDE 105 MMOL/L (99-107); CREATININE 0.58 MG/DL (0.40-0.90); GLUCOSE 127 MG/DL (70-104); MAGNESIUM 2.3 MG/DL (1.5-2.4); POTASSIUM 3.5 MMOL/L (3.5-5.1); SODIUM 140 MMOL/L (135-145); TOTAL CARBON DIOXIDE 30.3 MMOL/L (24-32); TOTAL PROTEIN 6.2 G/DL (6.4-8.2); eGFR > 90 ML/MIN
[2020-04-20 06:52] LABS: BASOPHILS % (AUTO) 0.6 % (0-1); EOSINOPHILS # (AUTO) 0.2 X10'3 (0-0.9); EOSINOPHILS % (AUTO) 4.7 % (0-6); HEMATOCRIT 31.8 % (35.0-45.0); HEMOGLOBIN 10.5 g/dl (12.0-16.0); LYMPHOCYTES # (AUTO) 0.9 X10'3 (1.1-4.8); LYMPHOCYTES % (AUTO) 17.7 % (21-51); MEAN CORPUSCULAR HEMOGLOBIN 27.6 PG (27.0-31.0); MEAN CORPUSCULAR HGB CONC 32.9 g/dL (33.0-36.5); MEAN CORPUSCULAR VOLUME 83.9 FL (78-98); MEAN PLATELET VOLUME 7.6 FL (7.4-10.4); MONOCYTES # (AUTO) 0.5 X10'3 (0-0.9); MONOCYTES % (AUTO) 9.6 % (2-12); NEUTROPHILS # (AUTO) 3.5 X10'3 (1.8-7.7); NEUTROPHILS % (AUTO) 67.4 % (42-75); PLATELET COUNT 198 X10'3 (140-440); RED BLOOD COUNT 3.79 X10'6 (4.20-5.60); RED CELL DISTRIBUTION WIDTH 14.2 % (11.5-14.5); WHITE BLOOD COUNT 5.2 X10'3 (4.5-11.0)
[2020-04-20] MEDS: duloxetine 30mg CAPSULE.DR PO SCH (07:44)
[2020-04-20] MEDS: vitamin D (cholecalciferol) 1,000 unit tablet PO SCH ×2 (07:44→19:43)
[2020-04-20] MEDS: losartan 50mg tablet PO SCH (07:44)
[2020-04-20] MEDS: docusate sod 100mg capsule PO SCH ×2 (07:45→19:43)
[2020-04-20] MEDS: nitrofuran/nitrofuran macrocrysal 100 MG capsule PO SCH ×2 (07:45→19:43)
[2020-04-20] MEDS: ascorbic acid 500mg tablet PO SCH (07:45)
[2020-04-20] MEDS: morphine ER 30mg tablet PO SCH ×3 (07:46→23:34)
[2020-04-20 07:53] VITALS: BP 135/60
[2020-04-20] MEDS: propranolol 10mg tablet PO SCH ×2 (07:53→19:43)
[2020-04-20] MEDS: K and/or MAG REPLACEMENT MC SCH ×2 (08:00→20:00)
[2020-04-20] MEDS: insulin Lispro (HumaLOG) vial - multi-dose SQ SCH ×2 (10:08→18:32)
[2020-04-20 12:00] VITALS: BP 182/62
[2020-04-20 12:15] VITALS: BP 150/62
--- NOTE | 2020-04-20 12:40 | NUR ---
pATIENT EDUCATED BY NURSING STUDENTS AND PRIMARY RN. EDUCATED ON EMPTING COLOSTOMY, REPLACING COLOSTOMY BAG, MONITORING STOMA, AND COMPLETE BAG CHANGE. PT. VERBAL FEEDBACK NEGATIVE STATING "iT'S HARD TO DO THIS BLIND" BUT PT. DEMONSTRATED BEING ABLE TO EMPTY BAG WITH LITTLE DIFFICULTY. PT HAD MORE DIFFICULTY CHANGING BAG HOWEVER, WITH REINFORCEMENT WILL COMPREHEND AND IS PHYSICALLY ABLE. HOME SUPPLIES PROVIDED SUCH GLOVES, CONTAINER TO EMPTY STOOL INTO, WIPES. NO OSTOMY BAGS ON THIS FLOOR AT THIS TIME TO PROVIDE PT. WITH.
--- NOTE | 2020-04-20 14:38 | NUR ---
Pt. did not consume enough carbs for lunch nor was her blood sugar high enough to administer any insulin.
--- NOTE | 2020-04-20 14:46 | NUR ---
Pt. spoke to her family- her sister- who told her that she would not be able to help care for her colostomy as it "makes her sick". Pt. now agreeable to a rehab. facility and she does not feel independent enough to care for her colostomy. concerned about the rehab facility address her pain. Case management paged with this information.
--- NOTE | 2020-04-20 16:02 | NUR ---
While doing colostomy care this Am noted dark color of stoma. Output good. Notified rim fire charger operator. special equipment technician also concerned. Surgeon just rounded and visualized stoma. No new orders and stated that it was in normal condition and that the pt. was surgically clear for discharge.
--- NOTE | 2020-04-20 16:09 | NUR ---
Wound care came to give education today and change appliance with the patient. Mrs. Echavarria did not want to allow me to change the bag because it was just changed today by the nurse. I removed the bag from the wafer and assessed the stoma, patient complained of pain when I cleaned the stoma with saline and gauze. Stoma is dark red almost black and no brick red seen. I was able to enter the os with my pinky finger. Soft formed stool was present. Concern for the amount of pain this assessment caused to the patient and the color of the stoma today. I asked the nurse to come in with me to assess the stoma, I addressed my concerns with the nurse and explained Dr. Casillas should come see the stoma prior to the patient being discharged. Dr. Casillas happen to come to the unit at this time and I showed him the stoma with the bag off at this time there was more formed paste like stool present. He was happy with the stoma. He stated the pain is from all the surgical procedure. Additional colostomy bag change was left at the bedside. Addendum: 04/20/20 at 1620 by Yeimi Ontiveros RN Amended: Links added.
[2020-04-20] MEDS ORDERED: magnesium hydroxide 30ml (MOM) UD suspension PO ONE (16:20)
--- NOTE | 2020-04-20 18:00 | NUR ---
Patient in room [facility]. I have received report from Barbra CHAUDHRY and had the opportunity to ask questions and assume patient care.
--- NOTE | 2020-04-20 18:20 | NUR ---
Gave report to Miriam CHAUDHRY.
[2020-04-20 20:00] VITALS: BP 165/77
[2020-04-20] MEDS: traZODone 50mg tablet PO SCH (20:12)
--- NOTE | 2020-04-20 23:28 | NUR ---
patients stoma was leaking so Jania CHAUDHRY and I put a new one on
[2020-04-20] MEDS: LORazepam 2 mg/ml vial IV PRN (23:59)
[2020-04-21] VITALS: BP 195/75
--- NOTE | 2020-04-21 06:00 | NUR ---
Patient in room [facility]. I have received report from RICHA Pineda and had the opportunity to ask questions and assume patient care.
--- NOTE | 2020-04-21 07:06 | NUR ---
Problems reprioritized. Patient report given, questions answered & plan of care reviewed with Lily CHAUDHRY.
[2020-04-21] MEDS: duloxetine 30mg CAPSULE.DR PO SCH (07:56)
[2020-04-21] MEDS: vitamin D (cholecalciferol) 1,000 unit tablet PO SCH ×2 (07:56→20:30)
[2020-04-21] MEDS: nitrofuran/nitrofuran macrocrysal 100 MG capsule PO SCH ×2 (07:56→20:30)
[2020-04-21] MEDS: losartan 50mg tablet PO SCH (07:56)
[2020-04-21] MEDS: propranolol 10mg tablet PO SCH ×2 (07:56→20:30)
[2020-04-21] MEDS: ascorbic acid 500mg tablet PO SCH (07:56)
[2020-04-21] MEDS: morphine ER 30mg tablet PO SCH ×3 (07:56→23:31)
[2020-04-21 08:00] VITALS: BP 179/74
[2020-04-21] MEDS: magnesium hydroxide 30ml (MOM) UD suspension PO SCH (08:00)
[2020-04-21] MEDS: K and/or MAG REPLACEMENT MC SCH ×2 (08:00→20:00)
[2020-04-21] MEDS: docusate sod 100mg capsule PO SCH ×2 (08:00→20:30)
[2020-04-21] MEDS: insulin Lispro (HumaLOG) vial - multi-dose SQ SCH ×3 (09:57→18:40)
[2020-04-21 12:00] VITALS: BP 164/78
--- NOTE | 2020-04-21 12:32 | NUR ---
F/u: Attempted bedside visit with pt for f/u verbal colostomy nutrition therapy education however pt distracted reporting need for colostomy bag change, RN informed. Will f/u at another time. Addendum: 04/21/20 at [address] Amended: Links added.
--- NOTE | 2020-04-21 14:45 | NUR ---
F/u: Pt seen by RD for written/verbal colostomy and fiber content foods diet eds w/ RD contact information provided. Written eds placed on pt table w/ other papers including prior colostomy ed; RD notified pt of where eds were located since pt unsure. Pt reports mostly unable to read though can read somewhat r/t vision, poor appetite r/t grind products and foods preferences though will not state preferences when asked. Pt reports hopelessness at this time r/t CA mets DX and does not want thorough ed review only verbal fiber/hydration strategies were able to be provided by RD. Pt reports only wants 7-up, ice, and is agreeable juice TIDWM; dietary notified of pt preferences. Pt educated on carbonated beverage effects on ostomy. RD recommended social and political studies professor consult given pt presentation during visit. Recommendations: 1) Consider diet change to low fiber given recent GI surgery 2) juice TIDWM; sprite/lemon-[place] soda BIDLD 3) Routine bowel care 4) Scaled weights per rx Addendum: 04/21/20 at [address] Amended: Links added.
[2020-04-21] MEDS: LORazepam 2 mg/ml vial IV PRN (15:05)
--- NOTE | 2020-04-21 18:00 | NUR ---
Problems reprioritized. Patient report given, questions answered & plan of care reviewed with Jania Hoyos RN.
--- NOTE | 2020-04-21 18:34 | NUR ---
Patient in room [facility]. I have received report from RICHA Martinez and had the opportunity to ask questions and assume patient care. Addendum: 04/21/20 at 1834 by Shobha Valero RN Amended: Links added.
[2020-04-21] MEDS: traZODone 50mg tablet PO SCH (20:30)
[2020-04-22] VITALS: BP 164/57
[2020-04-22] MEDS: HYDROcodone/acetaminophen 10/325mg tab PO PRN (04:44)
--- NOTE | 2020-04-22 06:20 | NUR ---
Problems reprioritized. Patient report given, questions answered & plan of care reviewed with RN. Danielle.
--- NOTE | 2020-04-22 06:30 | NUR ---
Patient in room [facility]. I have received report from Jania Hoyos RN and had the opportunity to ask questions and assume patient care.
[2020-04-22 08:00] VITALS: BP 179/66
[2020-04-22] MEDS: docusate sod 100mg capsule PO SCH ×2 (08:17→19:59)
[2020-04-22] MEDS: nitrofuran/nitrofuran macrocrysal 100 MG capsule PO SCH ×2 (08:17→19:58)
[2020-04-22] MEDS: propranolol 10mg tablet PO SCH ×2 (08:17→20:00)
[2020-04-22] MEDS: ascorbic acid 500mg tablet PO SCH (08:17)
[2020-04-22] MEDS: duloxetine 30mg CAPSULE.DR PO SCH (08:17)
[2020-04-22] MEDS: vitamin D (cholecalciferol) 1,000 unit tablet PO SCH ×2 (08:18→19:59)
[2020-04-22] MEDS: magnesium hydroxide 30ml (MOM) UD suspension PO SCH (08:18)
[2020-04-22] MEDS: morphine ER 30mg tablet PO SCH ×2 (08:18→16:23)
[2020-04-22] MEDS: losartan 50mg tablet PO SCH (08:18)
[2020-04-22] MEDS: insulin Lispro (HumaLOG) vial - multi-dose SQ SCH ×3 (08:45→18:46)
[2020-04-22 11:00] VITALS: BP 197/71
[2020-04-22] MEDS ORDERED: magnesium hydroxide 30ml (MOM) UD suspension PO PRN (11:25)
[2020-04-22] MEDS ORDERED: amLODIPine 5mg tablet PO ONE (11:25)
[2020-04-22 11:30] VITALS: BP 186/67
[2020-04-22] MEDS: LORazepam 2 mg/ml vial IV PRN ×2 (12:02→18:43)
[2020-04-22 18:00] VITALS: BP 144/57
--- NOTE | 2020-04-22 18:36 | NUR ---
Problems reprioritized. Patient report given, questions answered & plan of care reviewed with RICHA Silverman.
[2020-04-22] MEDS: K and/or MAG REPLACEMENT MC SCH (19:50)
[2020-04-22] MEDS: traZODone 50mg tablet PO SCH (20:03)
[2020-04-23] VITALS: BP 165/69
[2020-04-23] MEDS: morphine ER 30mg tablet PO SCH ×4 (00:17→23:30)
[2020-04-23] MEDS: LORazepam 2 mg/ml vial IV PRN ×3 (02:59→20:03)
[2020-04-23 05:34] LABS: BASOPHILS % (AUTO) 0.6 % (0-1); EOSINOPHILS # (AUTO) 0.2 X10'3 (0-0.9); EOSINOPHILS % (AUTO) 3.6 % (0-6); HEMATOCRIT 34.7 % (35.0-45.0); HEMOGLOBIN 11.3 g/dl (12.0-16.0); LYMPHOCYTES # (AUTO) 1.1 X10'3 (1.1-4.8); LYMPHOCYTES % (AUTO) 17.5 % (21-51); MEAN CORPUSCULAR HEMOGLOBIN 27.3 PG (27.0-31.0); MEAN CORPUSCULAR HGB CONC 32.7 g/dL (33.0-36.5); MEAN CORPUSCULAR VOLUME 83.6 FL (78-98); MEAN PLATELET VOLUME 7.2 FL (7.4-10.4); MONOCYTES # (AUTO) 0.6 X10'3 (0-0.9); MONOCYTES % (AUTO) 9.3 % (2-12); NEUTROPHILS # (AUTO) 4.3 X10'3 (1.8-7.7); PLATELET COUNT 255 X10'3 (140-440); RED BLOOD COUNT 4.14 X10'6 (4.20-5.60); RED CELL DISTRIBUTION WIDTH 14.4 % (11.5-14.5); WHITE BLOOD COUNT 6.2 X10'3 (4.5-11.0)
[2020-04-23 06:00] LABS: ALANINE AMINOTRANSFERASE 39 U/L (12-78); ALBUMIN 2.7 G/DL (3.4-5.0); ALBUMIN/GLOBULIN RATIO 0.7 (1.1-1.5); ALKALINE PHOSPHATASE 126 IU/L (46-116); ANION GAP 6 (8-16); ASPARTATE AMINO TRANSFERASE 25 U/L (10-37); BILIRUBIN,TOTAL 0.3 MG/DL (0.1-1.0); BLOOD UREA NITROGEN 5 MG/DL (7-18); BUN/CREATININE RATIO 6.6 (6.6-38.0); CALCIUM 8.8 MG/DL (8.5-10.1); CHLORIDE 105 MMOL/L (99-107); CREATININE 0.76 MG/DL (0.40-0.90); GLUCOSE 132 MG/DL (70-104); POTASSIUM 3.7 MMOL/L (3.5-5.1); SODIUM 142 MMOL/L (135-145); TOTAL CARBON DIOXIDE 31.2 MMOL/L (24-32); TOTAL PROTEIN 6.7 G/DL (6.4-8.2); eGFR 76 ML/MIN
--- NOTE | 2020-04-23 06:32 | NUR ---
Reported off to Danielle CHAUDHRY. Patient is awake and alert on room air. In no apparent distress. Call light and items of frequent use within reach.
[2020-04-23 07:00] VITALS: BP 190/80
--- NOTE | 2020-04-23 07:02 | NUR ---
Patient in room [facility]. I have received report from Primary Danielle and had the opportunity to ask questions and assume patient care.
[2020-04-23] MEDS: K and/or MAG REPLACEMENT MC SCH ×2 (08:00→19:53)
[2020-04-23] MEDS: docusate sod 100mg capsule PO SCH ×2 (08:11→20:02)
[2020-04-23] MEDS: duloxetine 30mg CAPSULE.DR PO SCH (08:12)
[2020-04-23] MEDS: vitamin D (cholecalciferol) 1,000 unit tablet PO SCH ×2 (08:13→20:01)
[2020-04-23] MEDS: nitrofuran/nitrofuran macrocrysal 100 MG capsule PO SCH ×2 (08:13→20:03)
[2020-04-23] MEDS: ascorbic acid 500mg tablet PO SCH (08:13)
[2020-04-23] MEDS: propranolol 10mg tablet PO SCH ×2 (08:13→20:00)
[2020-04-23] MEDS: amLODIPine 5mg tablet PO SCH (08:14)
[2020-04-23] MEDS: losartan 50mg tablet PO SCH (08:15)
[2020-04-23] MEDS: insulin Lispro (HumaLOG) vial - multi-dose SQ SCH ×2 (08:27→13:02)
--- NOTE | 2020-04-23 11:59 | NUR ---
Reassessment: Pt with fluctuating PO intake of meals, documented with mostly 25% PO intake however up to 75% PO intake at dinner last night, pending further documentation of PO intake for today. Per CM notes pt inquiring about comfort care/hospice/palliative care. LBM 6/5, documented with 250 mL stool output per I&O. Will continue to follow closely and make recommendations as appropriate. F/u: Pt seen by RD for written/verbal colostomy and fiber content foods diet eds w/ RD contact information provided. Written eds placed on pt table w/ other papers including prior colostomy ed; RD notified pt of where eds were located since pt unsure. Pt reports mostly unable to read though can read somewhat r/t vision, poor appetite r/t grind products and foods preferences though will not state preferences when asked. Pt reports hopelessness at this time r/t CA mets DX and does not want thorough ed review only verbal fiber/hydration strategies were able to be provided by RD. Pt reports only wants 7-up, ice, and is agreeable juice TIDWM; dietary notified of pt preferences. Pt educated on carbonated beverage effects on ostomy. RD recommended community mental health social worker consult given pt presentation during visit. Recommendations: 1) Consider diet change to low fiber given recent GI surgery 2) juice TIDWM; sprite/lemon-[place] soda BIDLD 3) Routine bowel care 4) Scaled weights per rx Addendum: 04/23/20 at [address] Amended: Links added.
--- NOTE | 2020-04-23 12:37 | NUR ---
Pt refused noon accucheck.
[2020-04-23 18:00] VITALS: BP 159/72
--- NOTE | 2020-04-23 18:33 | NUR ---
Problems reprioritized. Patient report given, questions answered & plan of care reviewed with RICHA Silverman.
[2020-04-23] MEDS: traZODone 50mg tablet PO SCH (20:01)
[2020-04-23] MEDS: hydrALAZINE 20mg/ml inj. IV PRN (23:30)
[2020-04-23] MEDS: HYDROcodone/acetaminophen 10/325mg tab PO PRN (23:30)
[2020-04-24] VITALS: BP 197/73
[2020-04-24 01:00] VITALS: BP 164/62
[2020-04-24] MEDS: morphine 2 MG/ML inj. syringe IV PRN (02:40)
--- NOTE | 2020-04-24 06:05 | NUR ---
Patient in room [facility]. I have received report from RICHA Silverman and had the opportunity to ask questions and assume patient care.
[2020-04-24 06:30] VITALS: BP 166/54
--- NOTE | 2020-04-24 06:30 | NUR ---
Problems reprioritized. Patient report given, questions answered & plan of care reviewed with RICHA Dale.
--- NOTE | 2020-04-24 06:39 | NUR ---
Reported off to Sandy RN. Patient is awake and alert on room air. In no apparent distress. Call light and items of frequent use within reach.
[2020-04-24] MEDS: K and/or MAG REPLACEMENT MC SCH (07:44)
[2020-04-24] MEDS: ascorbic acid 500mg tablet PO SCH (08:00)
[2020-04-24] MEDS: vitamin D (cholecalciferol) 1,000 unit tablet PO SCH (08:00)
[2020-04-24] MEDS: docusate sod 100mg capsule PO SCH (08:00)
[2020-04-24] MEDS: nitrofuran/nitrofuran macrocrysal 100 MG capsule PO SCH (08:47)
[2020-04-24] MEDS: losartan 50mg tablet PO SCH (08:47)
[2020-04-24] MEDS: duloxetine 30mg CAPSULE.DR PO SCH (08:47)
[2020-04-24] MEDS: amLODIPine 5mg tablet PO SCH (08:47)
[2020-04-24] MEDS: propranolol 10mg tablet PO SCH ×2 (08:48→19:34)
[2020-04-24] MEDS: morphine ER 30mg tablet PO SCH ×3 (08:48→23:33)
[2020-04-24] MEDS: LORazepam 2 mg/ml vial IV PRN (10:27)
[2020-04-24] MEDS: insulin Lispro (HumaLOG) vial - multi-dose SQ SCH (10:33)
[2020-04-24 11:00] VITALS: BP 170/57
[2020-04-24] MEDS: hydrALAZINE 20mg/ml inj. IV PRN (12:32)
[2020-04-24] MEDS: oxyCODONE/APAP 10/325mg tablet PO PRN ×2 (12:40→19:35)
[2020-04-24] MEDS: metFORMIN 500mg tablet PO SCH (17:06)
--- NOTE | 2020-04-24 18:52 | NUR ---
Patient in room [facility]. I have received report from Sandy CHAUDHRY and had the opportunity to ask questions and assume patient care. Pt working on dinner tray and watching tv. No signs of distress, will continue to monitor.
[2020-04-24] MEDS: traZODone 50mg tablet PO SCH (19:33)
[2020-04-24 19:52] VITALS: BP 161/61
[2020-04-24] MEDS: nystatin 500,000 unit/5ML UD oral suspension PO SCH (23:33)
--- NOTE | 2020-04-25 06:35 | NUR ---
Patient in room [facility]. I have received report from RICHA Dale and had the opportunity to ask questions and assume patient care.
--- NOTE | 2020-04-25 06:38 | NUR ---
Problems reprioritized. Patient report given, questions answered & plan of care reviewed with Suyapa CHAUDHRY. Addendum: 04/25/20 at 0640 by Suyapa Whyte RN Report given to Ratna CHAUDHRY, not Suyapa.
[2020-04-25] MEDS: metFORMIN 500mg tablet PO SCH (07:24)
[2020-04-25] MEDS: morphine ER 30mg tablet PO SCH (07:24)
[2020-04-25] MEDS: amLODIPine 5mg tablet PO SCH (07:25)
[2020-04-25] MEDS: duloxetine 30mg CAPSULE.DR PO SCH (07:25)
[2020-04-25] MEDS: propranolol 10mg tablet PO SCH (07:25)
[2020-04-25] MEDS: nystatin 500,000 unit/5ML UD oral suspension PO SCH ×2 (07:25→13:06)
[2020-04-25] MEDS: losartan 50mg tablet PO SCH (07:34)
[2020-04-25 08:40] VITALS: BP 175/85
[2020-04-25] MEDS: LORazepam 2 mg/ml vial IV PRN (11:55)
--- NOTE | 2020-04-25 12:06 | NUR ---
In to give patient Ativan per patient request from feeling anxious. Patient stated tearfully that she is not able to take care of her colostomy at home due to being blind and unable to learn how to care for it. Wound care nurse was in talking to patient about care of her colostomy and patient was not cooperative with teaching. patient was asked if she would be able to feel with her hands and try and learn that way, patient rolled her eyes and stated, "apparently, being blind doesn't mean anything to anyone". Patient was educated that we do care that she is blind however, we will have to try and adapt to our current situations. Patient was then asked if there was anyone else in her life that would be able to help her care for her colostomy. patient stated her sister will not be able to help her but that she does have a inspector rag sorting that apparently stated he would be willing to care for it if someone would teach him. Patient was told that we can try and make an exception for him to come up and learn how to care for it. Patient stated that she did not think he would want to come up. Patient was then asked if maybe we can take an empty bag downstairs and talk to him downstairs. Patient stated this wouldn't work either because she didn't think he could learn without it being attached to her. Patient was then asked if she had any suggestions since she didn't seem to think any of ours would work. Patient stated she didn't know what to do and "this is really unfair that you are sending me home without 24/7 care". Apologies were extended to the patient and the situation was discussed with the patient again. Patient was upset and unable to learn at this time. Will attempt to give education again in a little while.
--- NOTE | 2020-04-25 13:22 | NUR ---
Patient's can patcher is bedside. Instructions on how to empty the colostomy were given to both the patient and can patcher. Patient still refused teaching however the can patcher was receptive. RICHA Lanza was notified that patient can patcher was bedside and she has come up to teach them how to change out the collection bag.
--- NOTE | 2020-04-25 13:37 | NUR ---
Myla, retail sales assistant, into help teach physical education department chair how to change the collection device for the colostomy. RICHA Lanza concerned about the color of the stoma, Dr. Casillas called and stated that he was aware and is not concerned because he says the stoma will pink up in about a week. Dr. Casillas said he will see the patient in his office.
--- NOTE | 2020-04-25 14:16 | NUR ---
Patient discharged home and taken from unit via wheelchair with x1 staff. PIV removed with cannula intact. Patient was given discharge instructions and these were also discussed with the jet handler bedside. Both stated an understanding of these. Patient was less attentive than the jet handler but still stated she was understanding. They were given information to follow up with PCP as well as with Dr. Casillas.
== END 2020-04-25 13:59 | disposition home health service (06) | DRG 231 ==
LOC: ER 14:21 → ED HOLD 22:37 → SUR 3N 23:10
PROVIDERS: ADMIT Internal Medicine; ATTEND Family Medicine
PROC: 0WQF4ZZ Repair Abdominal Wall, Percutaneous Endoscopic Approach (ICD-10-PCS; 2020-04-16)
PROC: 8E0W4CZ Robotic Assisted Procedure of Trunk Region, Percutaneous Endoscopic Approach (ICD-10-PCS; 2020-04-16)
PROC: 0D1N4Z4 Bypass Sigmoid Colon to Cutaneous, Percutaneous Endoscopic Approach (ICD-10-PCS; principal; 2020-04-16 08:11)
DX: C20 Malignant neoplasm of rectum (principal); C78.7 Secondary malignant neoplasm of liver and intrahepatic bile duct; J44.9 Chronic obstructive pulmonary disease, unspecified; M19.90 Unspecified osteoarthritis, unspecified site; F32.9 Major depressive disorder, single episode, unspecified; E11.9 Type 2 diabetes mellitus without complications; G89.4 Chronic pain syndrome; F17.200 Nicotine dependence, unspecified, uncomplicated; F41.9 Anxiety disorder, unspecified; I10 Essential (primary) hypertension; G47.33 Obstructive sleep apnea (adult) (pediatric); K42.9 Umbilical hernia without obstruction or gangrene; Z88.8 Allergy status to other drugs, medicaments and biological substances; Z90.49 Acquired absence of other specified parts of digestive tract; Z66 Do not resuscitate
CPT/HCPCS: 36415; 71045; 74018; 80053; 81003; 82948; 83036; 83690; 83735; 85025; 85610; 85730; 86885; 86900; 86901; 87081; 93005; 96372; 97110; 97116; 97162; 97530; 99285; A4215; A4618; C1758; G0378; J0360; J0694; J1100; J1170; J1650; J1815; J2001; J2060; J2175; J2212; J2250; J2270; J2405; J2704; J2710; J3010; J3490; J7030; J7120